=== PATIENT | female | born 2000 | race Caucasian/White ===

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

== ENCOUNTER 2022-04-18 14:56 | Emergency (ER) | payer MEDICAID ==
[~2022-04-18] VITALS: Ht 162.6 cm; Wt 69.1 kg
[~2022-04-18 14:56] MED LIST changes: +ALBU8.5H17 IH
[2022-04-18 15:28] VITALS: BP 119/60
[2022-04-18] MEDS ORDERED: AMOX-117 PO (15:48)
[2022-04-18] MEDS ORDERED: IBUP-1984 PO (15:48)
[2022-04-18] MEDS ORDERED: HYDROcodone/acetaminophen 5mg/325mg tablet PO ONE (15:50)
== END 2022-04-18 16:08 | disposition home or self-care (01) ==
LOC: ER 14:57
DX: K08.89 Other specified disorders of teeth and supporting structures (principal); K02.9 Dental caries, unspecified
CPT/HCPCS: 99283

== ENCOUNTER 2022-08-25 08:56 | Emergency (ER) | payer MEDICAID ==
[~2022-08-25] VITALS: Ht 162.6 cm; Wt 72.7 kg
[2022-08-25 08:57] VITALS: BP 113/58
[2022-08-25] MEDS ORDERED: AMOX-117 PO (09:18)
[2022-08-25] MEDS ORDERED: HYDR-3965 PO (09:18)
[2022-08-25] MEDS ORDERED: HYDROcodone/acetaminophen 5mg/325mg tablet PO ONE (09:20)
[2022-08-25] MEDS ORDERED: amox tr/potassium clavulanate 875/125mg TAB PO ONE (09:20)
== END 2022-08-25 09:53 | disposition home or self-care (01) ==
LOC: ER 08:57
DX: K08.89 Other specified disorders of teeth and supporting structures (principal)
CPT/HCPCS: 99283

== ENCOUNTER 2023-04-30 18:42 | Emergency (ER) | payer MEDICAID ==
[~2023-04-30] VITALS: Ht 162.6 cm; Wt 75.5 kg
[2023-04-30 18:45] VITALS: BP 115/66; PULSE 94; RESP 14; TEMP 98.5; O2SAT 96
[2023-05-01] MEDS ORDERED: NAPR-56 PO (09:24)
[2023-05-01] MEDS ORDERED: CLIN-97 PO (09:24)
== END 2023-04-30 21:20 | disposition left against medical advice (07) ==
LOC: ER 18:43
DX: K62.89 Other specified diseases of anus and rectum (principal); Z53.21 Procedure and treatment not carried out due to patient leaving prior to being seen by health care provider
CPT/HCPCS: 99281

== ENCOUNTER 2023-05-01 08:25 | Emergency (ER) | payer MEDICAID ==
[~2023-05-01] VITALS: Ht 162.6 cm; Wt 75.9 kg
[2023-05-01 08:30] VITALS: TEMP 97.8
[2023-05-01] MEDS ORDERED: LIDOcaine 1% 30ml preserv. free vial IJ STA (09:21)
[2023-05-01] MEDS ORDERED: NAPR-56 PO (09:24)
[2023-05-01] MEDS ORDERED: CLIN-97 PO (09:24)
--- NOTE | 2023-05-01 10:19 | NUR ---
PT STATES THAT SHE HAS PAIN AND MD SAID HE MAY GIVE PAIN MED. RN WILL CK WITH DR Hartley/Amparo VIRAMONTES.
[2023-05-01 10:22] VITALS: BP 109/68; PULSE 77; RESP 15; O2SAT 99
== END 2023-05-01 10:29 | disposition home or self-care (01) ==
LOC: ER 08:26
DX: L02.31 Cutaneous abscess of buttock (principal); J44.9 Chronic obstructive pulmonary disease, unspecified; Z86.14 Personal history of Methicillin resistant Staphylococcus aureus infection; Z79.2 Long term (current) use of antibiotics; Z79.899 Other long term (current) drug therapy
CPT/HCPCS: 10060; 99283; A6266; A6449